=== PATIENT | female | born 1995 | race Caucasian/White ===

== ENCOUNTER 2021-06-11 17:55 | Emergency (ER) | payer BC, SELFPAY ==
[2021-06-11 18:16] VITALS: BP 112/74; PULSE 68; RESP 16; TEMP 36.9; O2SAT 100
--- NOTE | 2021-06-11 18:48 | ED.FEMALEGU ---
HPI - Female Genitourinary General Chief complaint: Urogenital-Female Stated complaint: poss uti Time Seen by Provider: 06/11/21 18:49 Source: patient and RN notes reviewed Mode of arrival: ambulatory Limitations: no limitations History of Present Illness HPI Narrative: 25-year-old female presents with concern for urinary tract infection. Reports symptoms started today. She reports lower abdominal pain. She denies fever, body aches, chills, sweats. She reports history of urinary tract infections. She denies vomiting or nausea. MD elicited complaint: UTI Related Data Home Medications Medication Instructions Recorded Confirmed bupropion HCl 150 mg PO QAM 06/11/21 06/11/21 metoprolol succinate 25 mg PO DAILY 06/11/21 06/11/21 Allergies Allergy/AdvReac Type Severity Reaction Status Date / Time hydrocodone AdvReac Dizziness Verified 06/11/21 18:24 Review of Systems Review of Systems: CONSTITUTIONAL: Denies malaise, chills, sweats, or fever. CARDIOVASCULAR: Denies chest pain, palpitations, or edema. RESPIRATORY: Denies cough or dyspnea. GASTROINTESTINAL: Reports lower abdominal pain. Denies nausea, vomiting, diarrhea, bloody, or mucous stools. GENITOURINARY: Reports dysuria, frequency, suprapubic pressure. Denies hematuria. MUSCULOSKELETAL: Denies leg pain, back pain or myalgia. All systems reviewed & are unremarkable except as noted in HPI and below PMFSH Comments At time of signature, agree with nursing past medical, surgical, social and family history. There is no relevant family history pertinent to the presenting complaint Exam Narrative: GENERAL: Well-appearing, well-nourished, and in no acute distress. HEAD: Normocephalic. EYES: PERRLA, conjunctivae clear. NECK: Supple. No lymphadenopathy CHEST: Clear to auscultation. No respiratory distress. HEART: Regular rate and rhythm. ABDOMEN: Soft, nontender upon palpation, nondistended, normal active bowel sounds, no palpable or pulsatile masses, no guarding. No CVA tenderness SKIN: Warm, dry, no rash. NEURO: Alert and oriented x3. PSYCH: Normal mood and affect Course Course Emergency Course: Patient is aware of diagnosis, understands and agrees to treatment plan. Anticipatory guidance given. Patient agrees to follow-up as directed and is aware of reasons to seek care at the emergency department. Portions of this record may have been created with voice recognition software Vital Signs Vital signs: Vital Signs Temperature 98.4 F 06/11/21 18:16 Pulse Rate 146 H 06/11/21 18:16 Respiratory Rate 16 06/11/21 18:16 Blood Pressure 112/74 06/11/21 18:16 Pulse Oximetry 100 06/11/21 18:16 Temperature 98.4 F 06/11/21 18:16 Pulse Rate 146 H 06/11/21 18:16 Respiratory Rate 16 06/11/21 18:16 Blood Pressure 112/74 06/11/21 18:16 Pulse Oximetry 100 06/11/21 18:16 Reviewed. MDM - Female Genitourinary MDM Narrative Medical decision making narrative: Exam findings and UA show no acute concerns or changes; patient is non-toxic appearing and is in no distress. Patient is appropriate for outpatient treatment and follow-up. Differential Diagnosis Differential diagnosis: Likely urinary tract infection, bacterial vaginosis, cystitis and other (Pyelonephritis) Lab Data Labs: Urine Glucose Negative Reference Range: Negative Urine Bilirubin Negative Reference Range: Negative Urine Ketone Negative Reference Range: Negative Urine Specific [place] 1.015 Reference Range:1.001-1.035 Urine Blood Negative Reference Range: Negative * * Urine pH 6.5
== END 2021-06-11 18:58 | disposition home or self-care (01) ==
PROVIDERS: Emergency Provider Nurse Practitioner; PCP Internal Medicine
DX: N39.0 Urinary tract infection, site not specified (principal); F41.9 Anxiety disorder, unspecified; F32.A Depression, unspecified
CPT/HCPCS: 81003; 87086; 99203; G0463